=== PATIENT | female | born 1985 | race Caucasian/White ===

== ENCOUNTER 2017-03-24 21:51 | Emergency (ER) | payer MEDICARE ==
[2017-03-24 21:54] VITALS: BP 124/74; PULSE 99; RESP 18; TEMP 98.5; O2SAT 98
[2017-03-25] MEDS ORDERED: ZITHTAB PO (00:21)
--- NOTE | 2017-03-25 00:21 | PD ---
HPI Chief Complaint: Medical Clearance Time Seen by Provider: 00:00 Travel History International Travel<30 days: No Contact w/Intl Traveler<30days: No Traveled to known affect area: No History of Present Illness HPI 31-year-old female complains of facial pressure nasal congestion. Patient states that she has history of fibromyalgia. Patient states that she had constant facial pressure congestion for the past month. Patient states that she has intermittent low-grade fever at home. Patient was seen by physician outside the area recently and without any clear diagnosis. Patient denies any chest pain or shortness of breath. Patient denies abdominal pain. Patient denies any nausea vomiting diarrhea. Patient denies any chance of being . PFSH Past Medical History Tetanus Vaccination: Never Vaccinated ?: Not LMP: 02/21/2017 Social History Alcohol Use: No Tobacco Use: No Substance Use: No Allergies-Medications (Allergen,Severity, Reaction): Coded Allergies: No Known Allergies (Verified Allergy, Unknown, 03/25/17) Review of Systems General / Constitutional: No: Fever Eyes: No: Visual changes HENT: Positive: Congestion, No: Headaches Cardiovascular: No: Chest Pain or Discomfort Respiratory: No: Shortness of Breath Gastrointestinal: No: Abdominal Pain Genitourinary: No: Dysuria Musculoskeletal: No: Pain Skin: No Rash Neurologic: No: Weakness Psychiatric: No: Depression Endocrine: No: Polydipsia Hematologic/Lymphatic: No: Easy Bruising Physical Exam Narrative GENERAL: Well-nourished, well-developed patient. SKIN: Focused skin assessment warm/dry. HEAD: Normocephalic. EYES: No scleral icterus. No injection or drainage. TM: Clear. throat: Nonerythematous. Patient has some mild tenderness on palpation frontal maxillary sinus area. NECK: Supple, trachea midline. No JVD or lymphadenopathy. No meningismus CARDIOVASCULAR: Regular rate and rhythm without murmurs, gallops, or rubs. RESPIRATORY: Breath sounds equal bilaterally. No accessory muscle use. GASTROINTESTINAL: Abdomen soft, non-tender, nondistended. MUSCULOSKELETAL: No cyanosis, or edema. BACK: Nontender without obvious deformity. No CVA tenderness. Neurologic exam normal. Data Data Last Documented VS Vital Signs Date Time Temp Pulse Resp B/P (MAP) Pulse Ox O2 Delivery O2 Flow Rate FiO2 03/24/17 21:54 98.5 99 18 124/74 (91) 98 Room Air MDM Medical Decision Making Medical Screen Exam Complete: Yes Emergency Medical Condition: Yes Differential Diagnosis Differential diagnosis including URI, sinusitis, viral syndrome. Narrative Course 31-year-old female with persistent facial pressure and congestion. Diagnosis Primary Impression: Sinusitis Qualified Codes: J01.00 - Acute maxillary sinusitis, unspecified Patient Instructions: General Instructions Additional Instructions: Z-Yoan as directed. [id number] Flonase as directed. Follow-up with personal physician and digital research analyst. Med/Other Pt SpecificInfo: Prescription(s) given Scripts Azithromycin (Zithromax Z-Yoan) 250 Mg Dspk 250 MG PO DIRECTED for Infection, #1 DSPK 0 Refills 500 MG (2 tabs) day 1, then 1 tab days 2-5. Prov: Jacob Dobbs MD 03/25/17 Disposition: 01 DISCHARGE HOME Condition: Stable Jacob Dobbs MD Mar 25, 2017 00:21
== END 2017-03-25 01:20 | disposition home or self-care (01) ==
LOC: NEPD 21:51
DX: J01.00 Acute maxillary sinusitis, unspecified (principal)
CPT/HCPCS: 99283